=== PATIENT | male | born 1970 | race Caucasian/White ===

== ENCOUNTER 2022-05-06 21:22 | Emergency (ER) | payer BC ==
[~2022-05-06] VITALS: Ht 175.3 cm; Wt 104.3 kg
[2022-05-06 21:50] VITALS: BP_SYST 141
--- NOTE | 2022-05-06 21:52 | NUR ---
Patient triaged and placed in waiting room. VSS and patient appears in no acute distress at this time. Accompanied by self, awaiting available bed, and MD notified of need for MSE.
[2022-05-06] MEDS ORDERED: ASPIRIN 81 MG TAB.CHEW PO ONE (23:45)
[2022-05-07 00:05] LABS: BASOPHILS # (AUTO) 0.1 K/uL (0.0-0.2); BASOPHILS % (AUTO) 1.3 % (0.0-2.0); EOSINOPHILS # (AUTO) 0.2 K/uL (0.0-0.4); EOSINOPHILS % (AUTO) 2.1 % (0.0-4.0); HEMATOCRIT 43.2 % (36-54); HEMOGLOBIN 14.9 g/dL (14.0-18.0); LYMPHOCYTES # (AUTO) 1.3 K/uL (1.0-5.5); LYMPHOCYTES % (AUTO) 16.7 % (20.5-51.5); MEAN CORPUSCULAR HEMOGLOBIN 32 pg (27-31); MEAN CORPUSCULAR HGB CONC 35 % (32-36); MEAN CORPUSCULAR VOLUME 91 fL (79.0-98.0); MONOCYTES # (AUTO) 0.8 K/uL (0.0-1.0); MONOCYTES % (AUTO) 10.6 % (1.7-9.3); NEUTROPHILS # (AUTO) 5.5 K/uL (1.8-7.7); NEUTROPHILS % (AUTO) 69.3 % (40.0-70.0); PLATELET COUNT (AUTO) 206 K/uL (130-430); RED BLOOD CELL COUNT(AUTO) 4.73 MIL/uL (4.2-6.2); RED CELL DISTRIBUTION WIDTH 13.1 % (9.0-15.0); WHITE BLOOD COUNT (AUTO) 7.9 K/uL (4.8-10.8)
[2022-05-07 00:24] LABS: ANION GAP 5 (5-15); CHLORIDE 98 mmol/L (98-107); CREATININE 0.99 mg/dL (0.55-1.30); GLUCOSE 117 mg/dL (70-99); UREA NITROGEN, BLOOD 24 mg/dL (8-21)
[2022-05-07 00:31] LABS: ALANINE AMINOTRANSFERASE 35 U/L (12-78); ALBUMIN 3.9 g/dL (3.4-4.8); ASPARTATE AMINOTRANSFERASE 16 U/L (10-37); TOTAL BILIRUBIN 0.4 mg/dL (0.0-1.0)
[2022-05-07 00:41] LABS: GFR AFRICAN AMERICAN 102 mL/min (>90)
[2022-05-07] MEDS ORDERED: METO-290 PO (03:02)
[2022-05-07] MEDS ORDERED: PRO40 PO (03:02)
[2022-05-07] MEDS ORDERED: ATEN-41 PO (03:02)
[2022-05-07] MEDS ORDERED: ASPI-1457 PO (03:02)
[2022-05-07 05:25] VITALS: BP_SYST 119
--- NOTE | 2022-05-07 05:30 | NUR ---
PATIENT D/C WITH FAMILY AT 0400. PATIENT STABLE
== END 2022-05-07 04:10 | disposition home or self-care (01) ==
LOC: SED 21:22
DX: R07.89 Other chest pain (principal); E78.00 Pure hypercholesterolemia, unspecified; Z79.899 Other long term (current) drug therapy
CPT/HCPCS: 36415; 71045; 80053; 84484; 85025; 85379; 93005; 99285